=== PATIENT | male | born 1970 | race Two or more races ===

== ENCOUNTER 2017-01-21 14:55 | Emergency (ER) | payer SELFPAY ==
[~2017-01-21] VITALS: Ht 167.6 cm; Wt 77.1 kg
[2017-01-21 15:39] VITALS: BP 132/64
[2017-01-21] MEDS ORDERED: KETOROLAC TROMETH 60MG/2ML VIAL IM ONE (16:15)
== END 2017-01-21 16:45 | disposition home or self-care (01) ==
LOC: ER 14:55
DX: G89.29 Other chronic pain (principal); M54.40 Lumbago with sciatica, unspecified side; M19.90 Unspecified osteoarthritis, unspecified site; F17.210 Nicotine dependence, cigarettes, uncomplicated
CPT/HCPCS: 96372; 99283; J1885

== ENCOUNTER 2017-03-08 17:17 | Emergency (ER) | payer MEDICAID, OTHER ==
[~2017-03-08] VITALS: Ht 167.6 cm; Wt 79.4 kg
[2017-03-08 17:44] VITALS: BP 146/101
[2017-03-08] MEDS ORDERED: HYDROcodone-ACET 10/325MG TAB PO ONE (18:00)
== END 2017-03-08 18:26 | disposition home or self-care (01) ==
LOC: ER 17:17
DX: M54.41 Lumbago with sciatica, right side (principal); G89.29 Other chronic pain; F17.210 Nicotine dependence, cigarettes, uncomplicated; M19.90 Unspecified osteoarthritis, unspecified site

== ENCOUNTER 2017-04-09 16:29 | Emergency (ER) | payer MEDICAID ==
[~2017-04-09] VITALS: Ht 167.6 cm; Wt 84.5 kg
[2017-04-09 16:51] VITALS: BP 120/77
[2017-04-09] MEDS ORDERED: KETOROLAC TROMETH 60MG/2ML VIAL IM ONE (21:00)
[2017-04-09] MEDS ORDERED: HYDROcodone-ACET 10/325MG TAB PO ONE (21:00)
== END 2017-04-09 21:14 | disposition home or self-care (01) ==
LOC: ER 16:48
DX: S33.5XXA Sprain of ligaments of lumbar spine, initial encounter (principal); F17.210 Nicotine dependence, cigarettes, uncomplicated; M19.90 Unspecified osteoarthritis, unspecified site; X58.XXXA Exposure to other specified factors, initial encounter; Y93.89 Activity, other specified; Y92.89 Other specified places as the place of occurrence of the external cause; Y99.8 Other external cause status
CPT/HCPCS: 96372; 99283; J1885

== ENCOUNTER 2017-05-19 10:56 | Emergency (ER) | payer MEDICAID ==
[~2017-05-19] VITALS: Ht 167.6 cm; Wt 86.6 kg
[2017-05-19 12:46] VITALS: BP 133/85
[2017-05-19] MEDS ORDERED: HYDROcodone-ACET 10/325MG TAB PO ONE (13:00)
[2017-05-19] MEDS ORDERED: KETOROLAC TROMETH 60MG/2ML VIAL IM ONE (13:00)
== END 2017-05-19 13:08 | disposition home or self-care (01) ==
LOC: ER 10:56
DX: G89.29 Other chronic pain (principal); M54.9 Dorsalgia, unspecified; F17.210 Nicotine dependence, cigarettes, uncomplicated
CPT/HCPCS: 96372; 99283; J1885